=== PATIENT | female | born 1975 | race Two or more races ===

== ENCOUNTER 2020-02-07 16:27 | Emergency (ER) | payer SELFPAY ==
[~2020-02-07] VITALS: Ht 152.4 cm; Wt 81.8 kg
[2020-02-07] MEDS ORDERED: POLY10DR3 EACHEYE (17:07)
--- NOTE | 2020-02-07 17:08 | PHYS DOC ---
General Adult EDM: Chief Complaint: EYE PROBLEMS HPI: HPI: Patient is a 44 year old female who presents with Bilateral eye irritation, discharge, itching and pain x 2 days. Patient denies fever, recent illness, nausea, vomiting, vision changes, headache, dizziness, chest pain, soa. Rates her discomfort at a 8/10. Review of Systems: Review of Systems: Constitutional: Denies fever or chills. [] Eyes: Denies change in visual acuity. + Eye discharge, irritation, redness, itching [] HENT: Denies nasal congestion or sore throat. [] Respiratory: Denies cough or shortness of breath. [] Cardiovascular: Denies chest pain or edema. [] GI: Denies abdominal pain, nausea, vomiting, bloody stools or diarrhea. [] : Denies dysuria. [] Musculoskeletal: Denies back pain or joint pain. [] Integument: Denies rash. [] Neurologic: Denies headache, focal weakness or sensory changes. [] Endocrine: Denies polyuria or polydipsia. [] Lymphatic: Denies swollen glands. [] Psychiatric: Denies depression or anxiety. [] Heart Score: Risk Factors: Risk Factors: DM, Current or recent (<one month) smoker, HTN, HLP, family history of CAD, obesity. Risk Scores: Score 0 - 3: 2.5% MACE over next 6 weeks - Discharge Home Score 4 - 6: 20.3% MACE over next 6 weeks - Admit for Clinical Observation Score 7 - 10: 72.7% MACE over next 6 weeks - Early Invasive Strategies Physical Exam: PE: Constitutional: Well developed, well nourished, no acute distress, non-toxic appearance. [] HENT: Normocephalic, atraumatic, bilateral external ears normal, oropharynx moist, no oral exudates, nose normal. [] Eyes: PERRLA, EOMI, bilateral conjunctiva pink, sclera white discharge. 1+ swelling to the lids [] Neck: Normal range of motion, no tenderness, supple, no stridor. [] Cardiovascular:Heart rate regular rhythm, no murmur [] Lungs & Thorax: Bilateral breath sounds clear to auscultation [] Abdomen: Bowel sounds normal, soft, no tenderness, no masses, no pulsatile masses. [] Skin: Warm, dry, no erythema, no rash. [] Back: No tenderness, no CVA tenderness. [] Extremities: No tenderness, no cyanosis, no clubbing, ROM intact, no edema. [] Neurologic: Alert and oriented X 3, normal motor function, normal sensory function, no focal deficits noted. [] Psychologic: Affect normal, judgement normal, mood normal. [] EKG: EKG: [] Radiology/Procedures: Radiology/Procedures: [] Course & Med Decision Making: Course & Med Decision Making Pertinent Labs and Imaging studies reviewed. (See chart for details) See HPI. Patient denies any injury to her eyes. Bilateral conjunctivae of pinkness with clear white discharge and 1+ swelling. No cellulitis. PERRLA. Patient states she sees out of her eyes as normal. No pain with eye movements. Patient will be given antibiotic ointment for her eyes. [] Dragon Disclaimer: Dragon Disclaimer: This electronic medical record was generated, in whole or in part, using a voice recognition dictation system. Departure Departure Impression: Primary Impression: Conjunctivitis Qualified Codes: H10.33 - Unspecified acute conjunctivitis, bilateral Disposition: 01 DC HOME SELF CARE/HOMELESS Condition: STABLE Patient Instructions: Conjunctivitis (Viral and Bacterial) Additional Instructions: Follow-up with your primary care or a eye doctor if needed. Use eyedrops as directed. Remember this is very contagious. Scripts Polymyxin B Sulf/Trimethoprim (POLYMYXIN B-TMP EYE DROPS) 10 Ml Drops 1 DROP EACHEYE QID for 7 Days, #10 ML 0 Refills Prov: ELOY CUENCA APRN 02/07/20 ELOY CUENCA APRN Feb 07, 2020 17:08
[2020-02-07 17:11] VITALS: BP 121/85
== END 2020-02-07 17:22 | disposition home or self-care (01) ==
LOC: ER 16:27
DX: H10.33 Unspecified acute conjunctivitis, bilateral (principal)
CPT/HCPCS: 99283